=== PATIENT | male | born 1945 | race Caucasian/White ===

== ENCOUNTER 2019-08-19 23:47 | Observation (INO) ==
[2019-08-20] MEDS ORDERED: Isovue-370 500 ML BOTTLE IVP ONE (00:19)
[2019-08-20 00:37] LABS: Basophils % 0.7 %; Eosinophils # 0.1 K/mcL (0.0-0.6); Eosinophils % 1.7 %; Hematocrit 29.4 % (37.5-50.1); Hemoglobin 9.3 g/dL (12.9-16.9); Immature Granulocytes % 0.2 % (0-4); Lymphocytes # 2.5 K/mcL (0.6-4.6); Lymphocytes % 45.2 %; Mean Corpuscular HGB Conc 31.6 g/dL (31.6-35.5); Mean Corpuscular Hemoglobin 28.5 pg (28.0-33.3); Mean Corpuscular Volume 90.2 fL (83.0-100.0); Mean Platelet Volume 9.3 fL (9.4-12.4); Monocytes # 0.7 K/mcL (0.0-1.3); Monocytes % 13.2 %; Neutrophils # 2.1 K/mcL (1.6-8.9); Platelet Count 266 K/mcL (140-400); Red Blood Count 3.26 M/mcL (4.19-5.50); Red Cell Distribution Width 14.2 % (11.5-14.5); White Blood Count 5.4 K/mcL (4.3-11.1)
[2019-08-20 00:43] LABS: Bilirubin,Urine Negative (Negative); Blood,Urine Small (Negative); Clarity,Urine Clear (Clear); Color,Urine Yellow (Yellow); Glucose,Urine (UA) Normal (Normal); Ketones,Urine Negative (Negative); Leukocyte Esterase,Urine Negative (Negative); Nitrite,Urine Negative (Negative); Protein,Urine Negative (Neg-Trace); Specific Gravity,Urine 1.023 (1.010-1.025); Urobilinogen,Urine Normal (Normal)
[2019-08-20 00:44] LABS: Bacteria,Urine None Seen per hpf (None-Few); Hyaline Casts,Urine None Seen per lpf (None-Few); Squamous Epithelial Cell,Urine Moderate per lpf (None-Few); WBC,Urine 0-3 per hpf (0-3)
[2019-08-20 00:50] LABS: Amphetamine Screen,Urine Negative ng/mL (Cutoff=1000); Barbiturate Screen,Urine Negative ng/mL (Cutoff=200); Benzodiazepines Screen,Urine Negative ng/mL (Cutoff=200); Cannabinoid Screen,Urine Negative ng/mL (Cutoff = 50); Cocaine Screen,Urine Negative ng/mL (Cutoff= 300); Opiate Screen,Urine Negative ng/mL (Cutoff=300); Phencyclidine Screen,Urine Negative ng/mL (Cutoff=25)
[2019-08-20 00:54] LABS: Alanine Aminotransferase 20 Units/L (7-52); Albumin 4.1 g/dL (3.5-5.7); Albumin/Globulin Ratio 1.4 (1.1-2.2); Alkaline Phosphatase 48 Units/L (34-104); Aspartate Amino Transferase 27 Units/L (13-39); BUN/Creatinine Ratio 17 (6-26); Bilirubin,Total 0.3 mg/dL (0.3-1.0); Blood Urea Nitrogen 19 mg/dL (8-23); Calcium 9.3 mg/dL (8.6-10.3); Carbon Dioxide 23 mEq/L (23-29); Chloride 102 mEq/L (98-107); Glucose 134 mg/dL (70-105); Lipase 20 Units/L (11-82); Magnesium 1.9 mg/dL (1.6-2.6); Osmolality,Calculated 284 (280-300); Phosphorous 2.7 mg/dL (2.7-4.5); Sodium 135 mEq/L (136-145); Total Protein 7.1 g/dL (6.4-8.9); eGFR For African Americans > 60 (> 60); eGFR For Non-African Americans > 60 (> 60)
[2019-08-20 00:56] LABS: Troponin I < 0.03 ng/mL (< 0.04)
[2019-08-20] MEDS ORDERED: Potassium Chloride Elixir 20 MEQ/15 ML UDC PO ONE (01:01)
[2019-08-20] MEDS ORDERED: Naloxone 0.4 MG/ML INJ IVP PRN (08:01)
[2019-08-20] MEDS ORDERED: 0.9 % Sodium Chloride w KCl 20 MEQ/1,000 ML MLS IVC SCH (13:00)
[2019-08-20 13:42] LABS: Folate > 22.3 ng/mL (3.0-16.0); Vitamin B12 153 pg/mL (250-1100)
[2019-08-21 02:17] LABS: Basophils % 0.3 %; Eosinophils # 0.1 K/mcL (0.0-0.6); Eosinophils % 1.8 %; Hematocrit 27.3 % (37.5-50.1); Hemoglobin 8.6 g/dL (12.9-16.9); Immature Granulocytes % 0.3 % (0-4); Lymphocytes % 26.1 %; Mean Corpuscular HGB Conc 31.5 g/dL (31.6-35.5); Mean Corpuscular Hemoglobin 28.8 pg (28.0-33.3); Mean Corpuscular Volume 91.3 fL (83.0-100.0); Mean Platelet Volume 9.3 fL (9.4-12.4); Monocytes # 0.7 K/mcL (0.0-1.3); Monocytes % 16.6 %; Neutrophils # 2.2 K/mcL (1.6-8.9); Platelet Count 214 K/mcL (140-400); Red Blood Count 2.99 M/mcL (4.19-5.50); Red Cell Distribution Width 14.6 % (11.5-14.5); Segmented Neutrophils % 54.9 %; White Blood Count 3.9 K/mcL (4.3-11.1)
[2019-08-21 02:41] LABS: BUN/Creatinine Ratio 17 (6-26); Blood Urea Nitrogen 15 mg/dL (8-23); Calcium 8.3 mg/dL (8.6-10.3); Carbon Dioxide 21 mEq/L (23-29); Chloride 108 mEq/L (98-107); Glucose 90 mg/dL (70-105); Osmolality,Calculated 280 (280-300); Sodium 135 mEq/L (136-145); eGFR For African Americans > 60 (> 60); eGFR For Non-African Americans > 60 (> 60)
[2019-08-21] MEDS ORDERED: amLODIPine 5 MG TABLET PO SCH (09:00)
[2019-08-21] MEDS ORDERED: Dasatinib [Sprycel] 100 MG PO SCH (09:00)
[2019-08-21 11:53] VITALS: BP 148/77
[2019-08-21] MEDS ORDERED: Cyanocobalamin (B-12) 1,000 MCG/ML VIAL IM ONE (12:36)
[2019-08-21] MEDS ORDERED: levETIRAcetam 250 MG TABLET PO ONE (15:02)
== END 2019-08-21 16:08 | disposition home or self-care (01) ==
LOC: 2ANU 23:47 → EMEROOARM 23:47 → SUATTDRO 08-20 02:42 → 2ANU 08-20 03:01
PROVIDERS: ADMIT Internal Medicine; ATTEND Internal Medicine

== ENCOUNTER 2020-12-03 22:24 | Inpatient (IN) ==
[2020-12-04] MEDS ORDERED: Ringers Solution, Lactated 1,000 ML IVC ONE (00:06)
[2020-12-04 00:38] LABS: BUN/Creatinine Ratio 22 (6-26); Blood Urea Nitrogen 26 mg/dL (8-23); Calcium 8.9 mg/dL (8.6-10.3); Carbon Dioxide 23 mEq/L (23-29); Chloride 100 mEq/L (98-107); Glucose 113 mg/dL (70-105); Osmolality,Calculated 290 (280-300); Potassium 3.7 mEq/L (3.5-5.1); Sodium 137 mEq/L (136-145); eGFR For African Americans > 60 (> 60); eGFR For Non-African Americans 59 (> 60)
[2020-12-04 00:50] LABS: Troponin I 0.15 ng/mL (< 0.04)
[2020-12-04 00:52] LABS: INR 1.1; Prothrombin Time 12.6 Seconds (9.4-12.1)
[2020-12-04 00:55] LABS: Activated Partial Thrombo Time 31.7 Seconds (26.0-36.0)
[2020-12-04 01:00] LABS: Basophils % 0.5 %; Hematocrit 36.8 % (37.5-50.1); Hemoglobin 11.6 g/dL (12.9-16.9); Immature Granulocytes % 1.3 % (0-4); Lymphocytes # 0.4 K/mcL (0.6-4.6); Lymphocytes % 11.1 %; Mean Corpuscular HGB Conc 31.5 g/dL (31.6-35.5); Mean Corpuscular Volume 88.7 fL (83.0-100.0); Mean Platelet Volume 10.9 fL (9.4-12.4); Monocytes # 0.3 K/mcL (0.0-1.3); Monocytes % 6.6 %; Neutrophils # 3.1 K/mcL (1.6-8.9); Nucleated Red Blood Cells 0.5 /100 WBC (0); Platelet Count 197 K/mcL (140-400); Red Blood Count 4.15 M/mcL (4.19-5.50); Red Cell Distribution Width 15.5 % (11.5-14.5); Segmented Neutrophils % 80.5 %; White Blood Count 3.8 K/mcL (4.3-11.1)
[2020-12-04] MEDS ORDERED: Isovue-370 500 ML BOTTLE IVP ONE (01:23)
[2020-12-04] MEDS ORDERED: Aspirin 325 MG TABLET PO ONE (01:34)
[2020-12-04] MEDS ORDERED: Naloxone 0.4 MG/ML INJ IVP PRN (03:23)
[2020-12-04] MEDS: *HR* Enoxaparin 60 MG/0.6 ML SYRINGE SQ SCH ×2 (05:12→17:01)
[2020-12-04 05:22] LABS: Alanine Aminotransferase 15 Units/L (7-52); Albumin 3.5 g/dL (3.5-5.7); Albumin/Globulin Ratio 0.9 (1.1-2.2); Alkaline Phosphatase 32 Units/L (34-104); Aspartate Amino Transferase 47 Units/L (13-39); BUN/Creatinine Ratio 22 (6-26); Bilirubin,Total 0.5 mg/dL (0.3-1.0); Blood Urea Nitrogen 23 mg/dL (8-23); Calcium 8.7 mg/dL (8.6-10.3); Carbon Dioxide 23 mEq/L (23-29); Chloride 101 mEq/L (98-107); Globulin 4.1 g/dL (2.4-3.5); Glucose 118 mg/dL (70-105); Osmolality,Calculated 287 (280-300); Potassium 3.7 mEq/L (3.5-5.1); Sodium 136 mEq/L (136-145); Total Protein 7.6 g/dL (6.4-8.9); eGFR For African Americans > 60 (> 60); eGFR For Non-African Americans > 60 (> 60)
[2020-12-04 05:23] LABS: Albumin 3.6 g/dL (3.5-5.7); Albumin/Globulin Ratio 0.9 (1.1-2.2); Bilirubin,Direct 0.2 mg/dL (0.0-0.2); Bilirubin,Indirect 0.3 mg/dL (0.0-1.0); Bilirubin,Total 0.5 mg/dL (0.3-1.0); Globulin 3.9 g/dL (2.4-3.5); Total Protein 7.5 g/dL (6.4-8.9)
[2020-12-04 05:26] LABS: C-Reactive Protein 119 mg/L (Less than 10)
[2020-12-04 05:41] LABS: Ferritin 419 ng/mL (20-250)
[2020-12-04 06:04] LABS: Basophils % 0.5 %; Hematocrit 36.8 % (37.5-50.1); Hemoglobin 11.6 g/dL (12.9-16.9); Immature Granulocytes % 0.5 % (0-4); Lymphocytes # 0.5 K/mcL (0.6-4.6); Lymphocytes % 12.3 %; Mean Corpuscular HGB Conc 31.5 g/dL (31.6-35.5); Mean Corpuscular Volume 88.7 fL (83.0-100.0); Mean Platelet Volume 10.7 fL (9.4-12.4); Monocytes # 0.2 K/mcL (0.0-1.3); Monocytes % 4.2 %; Neutrophils # 3.1 K/mcL (1.6-8.9); Platelet Count 195 K/mcL (140-400); Red Blood Count 4.15 M/mcL (4.19-5.50); Red Cell Distribution Width 15.5 % (11.5-14.5); Segmented Neutrophils % 82.5 %; White Blood Count 3.8 K/mcL (4.3-11.1)
[2020-12-04] MEDS ORDERED: Perflutren Lipid Microsphere 1.3 ML in 0.9 % Sodium Chloride 8.7 ML IVP PRN (12:11)
[2020-12-05 02:42] LABS: Basophils % 0.5 %; Hematocrit 39.2 % (37.5-50.1); Hemoglobin 12.6 g/dL (12.9-16.9); Immature Granulocytes % 1.8 % (0-4); Lymphocytes # 0.5 K/mcL (0.6-4.6); Lymphocytes % 8.3 %; Mean Corpuscular HGB Conc 32.1 g/dL (31.6-35.5); Mean Corpuscular Hemoglobin 28.4 pg (28.0-33.3); Mean Corpuscular Volume 88.5 fL (83.0-100.0); Mean Platelet Volume 10.6 fL (9.4-12.4); Monocytes # 0.3 K/mcL (0.0-1.3); Monocytes % 4.9 %; Neutrophils # 5.2 K/mcL (1.6-8.9); Platelet Count 244 K/mcL (140-400); Red Blood Count 4.43 M/mcL (4.19-5.50); Red Cell Distribution Width 15.6 % (11.5-14.5); Segmented Neutrophils % 84.5 %
[2020-12-05 02:43] LABS: White Blood Count 6.1 K/mcL (4.3-11.1)
[2020-12-05 03:05] LABS: Alanine Aminotransferase 12 Units/L (7-52); Albumin 3.2 g/dL (3.5-5.7); Albumin/Globulin Ratio 0.8 (1.1-2.2); Alkaline Phosphatase 29 Units/L (34-104); Aspartate Amino Transferase 37 Units/L (13-39); BUN/Creatinine Ratio 25 (6-26); Bilirubin,Total 0.4 mg/dL (0.3-1.0); Blood Urea Nitrogen 30 mg/dL (8-23); Calcium 8.5 mg/dL (8.6-10.3); Carbon Dioxide 25 mEq/L (23-29); Chloride 103 mEq/L (98-107); Glucose 106 mg/dL (70-105); Osmolality,Calculated 295 (280-300); Potassium 4.7 mEq/L (3.5-5.1); Sodium 139 mEq/L (136-145); Total Protein 7.2 g/dL (6.4-8.9); eGFR For African Americans > 60 (> 60); eGFR For Non-African Americans 59 (> 60)
[2020-12-05] MEDS: *HR* Enoxaparin 60 MG/0.6 ML SYRINGE SQ SCH ×2 (06:04→17:30)
[2020-12-05] MEDS: Lactobacillus 1 EACH CAP.SPRINK PO SCH ×2 (08:14→20:03)
[2020-12-05] MEDS: amLODIPine 5 MG TABLET PO SCH (08:14)
[2020-12-05] MEDS: dexAMETHasone 4 MG TABLET PO SCH (08:15)
[2020-12-05] MEDS: DASATINIB 100 MG PO SCH (08:16)
[2020-12-05] MEDS ORDERED: Remdesivir 200 MG in 0.9 % Sodium Chloride 100 ML IVPB ONE (16:00)
[2020-12-05] MEDS: Ipratropium 1 PUFF INHALER IH SCH ×2 (20:44→20:48)
[2020-12-06] MEDS: Ipratropium 1 PUFF INHALER IH SCH ×6 (00:35→19:59)
[2020-12-06 01:49] LABS: Basophils % 0.5 %; Hematocrit 37.2 % (37.5-50.1); Hemoglobin 12.1 g/dL (12.9-16.9); Immature Granulocytes % 0.9 % (0-4); Lymphocytes # 0.4 K/mcL (0.6-4.6); Lymphocytes % 7.3 %; Mean Corpuscular HGB Conc 32.5 g/dL (31.6-35.5); Mean Corpuscular Hemoglobin 28.6 pg (28.0-33.3); Mean Corpuscular Volume 87.9 fL (83.0-100.0); Mean Platelet Volume 10.3 fL (9.4-12.4); Monocytes # 0.3 K/mcL (0.0-1.3); Monocytes % 5.3 %; Neutrophils # 5.1 K/mcL (1.6-8.9); Platelet Count 280 K/mcL (140-400); Red Blood Count 4.23 M/mcL (4.19-5.50); Red Cell Distribution Width 15.4 % (11.5-14.5); White Blood Count 5.9 K/mcL (4.3-11.1)
[2020-12-06 01:55] LABS: VBG HCO3 24 mEq/L (21-27); VBG PCO2 34 mmHg (41-51); VBG PH 7.46 pH Units (7.32-7.42); VBG PO2 51 mmHg (25-50)
[2020-12-06 02:08] LABS: Albumin 3.3 g/dL (3.5-5.7); Albumin/Globulin Ratio 0.8 (1.1-2.2); Bilirubin,Direct 0.1 mg/dL (0.0-0.2); Bilirubin,Indirect 0.3 mg/dL (0.0-1.0); Bilirubin,Total 0.4 mg/dL (0.3-1.0); Globulin 3.9 g/dL (2.4-3.5); Total Protein 7.2 g/dL (6.4-8.9)
[2020-12-06 02:09] LABS: BUN/Creatinine Ratio 32 (6-26); Blood Urea Nitrogen 35 mg/dL (8-23); C-Reactive Protein 98 mg/L (Less than 10); Calcium 8.3 mg/dL (8.6-10.3); Carbon Dioxide 23 mEq/L (23-29); Chloride 103 mEq/L (98-107); Glucose 127 mg/dL (70-105); Osmolality,Calculated 294 (280-300); Potassium 3.9 mEq/L (3.5-5.1); Sodium 137 mEq/L (136-145); eGFR For African Americans > 60 (> 60); eGFR For Non-African Americans > 60 (> 60)
[2020-12-06] MEDS: *HR* Enoxaparin 60 MG/0.6 ML SYRINGE SQ SCH ×2 (04:46→17:02)
[2020-12-06] MEDS: DASATINIB 100 MG PO SCH (08:42)
[2020-12-06] MEDS: Lactobacillus 1 EACH CAP.SPRINK PO SCH ×2 (08:44→20:36)
[2020-12-06] MEDS: dexAMETHasone 4 MG TABLET PO SCH (08:44)
[2020-12-06] MEDS: amLODIPine 5 MG TABLET PO SCH (08:44)
[2020-12-06] MEDS: Remdesivir 100 MG in 0.9 % Sodium Chloride 100 ML IVPB SCH (15:59)
[2020-12-06] MEDS: Dexmedetomidine HCl 400 MCG/100 ML MLS IVC SCH (19:04)
[2020-12-06 22:31] LABS: VBG Ionized Calcium 1.07 mmol/L (1.15-1.35)
[2020-12-06 22:50] LABS: Magnesium 2.6 mg/dL (1.6-2.6)
[2020-12-06 23:04] LABS: Troponin I 0.06 ng/mL (< 0.04)
[2020-12-07 02:30] LABS: Basophils % 0.4 %; Hematocrit 35.7 % (37.5-50.1); Hemoglobin 11.1 g/dL (12.9-16.9); Lymphocytes # 0.3 K/mcL (0.6-4.6); Lymphocytes % 5.3 %; Mean Corpuscular HGB Conc 31.1 g/dL (31.6-35.5); Mean Corpuscular Volume 90.2 fL (83.0-100.0); Mean Platelet Volume 10.5 fL (9.4-12.4); Monocytes # 0.2 K/mcL (0.0-1.3); Monocytes % 4.1 %; Neutrophils # 4.6 K/mcL (1.6-8.9); Platelet Count 253 K/mcL (140-400); Red Blood Count 3.96 M/mcL (4.19-5.50); Red Cell Distribution Width 15.6 % (11.5-14.5); Segmented Neutrophils % 89.2 %; White Blood Count 5.1 K/mcL (4.3-11.1)
[2020-12-07 02:47] LABS: Heparin anti-factor XA UFH 0.12 IU/mL (0.30-0.70); INR 1.1; Prothrombin Time 12.3 Seconds (9.4-12.1)
[2020-12-07 02:54] LABS: Alanine Aminotransferase 12 Units/L (7-52); Albumin/Globulin Ratio 0.9 (1.1-2.2); Alkaline Phosphatase 28 Units/L (34-104); Aspartate Amino Transferase 37 Units/L (13-39); BUN/Creatinine Ratio 42 (6-26); Bilirubin,Indirect 0.4 mg/dL (0.0-1.0); Bilirubin,Total 0.4 mg/dL (0.3-1.0); Blood Urea Nitrogen 36 mg/dL (8-23); C-Reactive Protein 73 mg/L (Less than 10); Calcium 7.8 mg/dL (8.6-10.3); Carbon Dioxide 23 mEq/L (23-29); Chloride 104 mEq/L (98-107); Globulin 3.5 g/dL (2.4-3.5); Glucose 129 mg/dL (70-105); Osmolality,Calculated 300 (280-300); Sodium 140 mEq/L (136-145); Total Protein 6.5 g/dL (6.4-8.9); eGFR For African Americans > 60 (> 60); eGFR For Non-African Americans > 60 (> 60)
[2020-12-07] MEDS: Calcium Gluconate 1gm/50mL 1 GM/50 ML BAG IVPB SCH ×2 (03:22→04:08)
[2020-12-07] MEDS: Heparin 25,000UNIT/250ML 1/2NS 25,000 UNIT/250 ML IV.SOLN IVC SCH (03:27)
[2020-12-07] MEDS: Ipratropium 1 PUFF INHALER IH SCH ×7 (04:36→23:11)
[2020-12-07] MEDS ORDERED: *HR* Heparin 5,000 UNIT/ML VIAL IVP PRN ×2 (05:00)
[2020-12-07] MEDS: Lactobacillus 1 EACH CAP.SPRINK PO SCH ×2 (08:20→20:28)
[2020-12-07] MEDS: DASATINIB 100 MG PO SCH (08:20)
[2020-12-07] MEDS: amLODIPine 5 MG TABLET PO SCH (08:20)
[2020-12-07] MEDS: Dexamethasone Sodium Phos/PF 10 MG/ML VIAL IVP SCH (14:54)
[2020-12-07] MEDS: Remdesivir 100 MG in 0.9 % Sodium Chloride 100 ML IVPB SCH (18:23)
[2020-12-08] MEDS: Ipratropium 1 PUFF INHALER IH SCH ×6 (04:19→23:49)
[2020-12-08 07:04] LABS: Basophils % 0.3 %; Hematocrit 37.3 % (37.5-50.1); Immature Granulocytes % 1.4 % (0-4); Lymphocytes # 0.3 K/mcL (0.6-4.6); Lymphocytes % 4.5 %; Mean Corpuscular HGB Conc 32.2 g/dL (31.6-35.5); Mean Corpuscular Volume 87.1 fL (83.0-100.0); Mean Platelet Volume 10.5 fL (9.4-12.4); Monocytes # 0.2 K/mcL (0.0-1.3); Monocytes % 3.3 %; Neutrophils # 6.6 K/mcL (1.6-8.9); Platelet Count 353 K/mcL (140-400); Red Blood Count 4.28 M/mcL (4.19-5.50); Red Cell Distribution Width 15.3 % (11.5-14.5); Segmented Neutrophils % 90.5 %; White Blood Count 7.3 K/mcL (4.3-11.1)
[2020-12-08 07:19] LABS: BUN/Creatinine Ratio 42 (6-26); Blood Urea Nitrogen 37 mg/dL (8-23); Calcium 8.6 mg/dL (8.6-10.3); Carbon Dioxide 23 mEq/L (23-29); Chloride 107 mEq/L (98-107); Glucose 117 mg/dL (70-105); Osmolality,Calculated 300 (280-300); Potassium 3.8 mEq/L (3.5-5.1); Sodium 140 mEq/L (136-145); eGFR For African Americans > 60 (> 60); eGFR For Non-African Americans > 60 (> 60)
[2020-12-08 07:20] LABS: Albumin 3.1 g/dL (3.5-5.7); Albumin/Globulin Ratio 0.9 (1.1-2.2); Bilirubin,Direct 0.2 mg/dL (0.0-0.2); Bilirubin,Indirect 0.2 mg/dL (0.0-1.0); Bilirubin,Total 0.4 mg/dL (0.3-1.0); Globulin 3.6 g/dL (2.4-3.5); Total Protein 6.7 g/dL (6.4-8.9)
[2020-12-08] MEDS: amLODIPine 5 MG TABLET PO SCH (08:17)
[2020-12-08] MEDS: Dexamethasone Sodium Phos/PF 10 MG/ML VIAL IVP SCH (08:17)
[2020-12-08] MEDS: Lactobacillus 1 EACH CAP.SPRINK PO SCH ×2 (08:17→20:26)
[2020-12-08] MEDS: Remdesivir 100 MG in 0.9 % Sodium Chloride 100 ML IVPB SCH (16:37)
[2020-12-08] MEDS: Aspirin Enteric Coated 325 MG Tablet PO SCH (17:53)
[2020-12-08] MEDS: Heparin 25,000UNIT/250ML 1/2NS 25,000 UNIT/250 ML IV.SOLN IVC SCH (18:41)
[2020-12-09 01:18] LABS: Basophils % 0.5 %; Hematocrit 35.2 % (37.5-50.1); Hemoglobin 11.6 g/dL (12.9-16.9); Immature Granulocytes % 2.6 % (0-4); Lymphocytes # 0.4 K/mcL (0.6-4.6); Lymphocytes % 6.8 %; Mean Corpuscular Hemoglobin 29.3 pg (28.0-33.3); Mean Corpuscular Volume 88.9 fL (83.0-100.0); Mean Platelet Volume 10.2 fL (9.4-12.4); Monocytes # 0.2 K/mcL (0.0-1.3); Neutrophils # 5.2 K/mcL (1.6-8.9); Platelet Count 368 K/mcL (140-400); Red Blood Count 3.96 M/mcL (4.19-5.50); Red Cell Distribution Width 15.3 % (11.5-14.5); Segmented Neutrophils % 86.1 %; White Blood Count 6.1 K/mcL (4.3-11.1)
[2020-12-09 01:28] LABS: Heparin anti-factor XA UFH 0.47 IU/mL (0.30-0.70)
[2020-12-09 01:38] LABS: Albumin 2.9 g/dL (3.5-5.7); Albumin/Globulin Ratio 0.9 (1.1-2.2); Bilirubin,Direct 0.1 mg/dL (0.0-0.2); Bilirubin,Indirect 0.3 mg/dL (0.0-1.0); Bilirubin,Total 0.4 mg/dL (0.3-1.0); Globulin 3.4 g/dL (2.4-3.5); Total Protein 6.3 g/dL (6.4-8.9)
[2020-12-09 01:39] LABS: BUN/Creatinine Ratio 46 (6-26); Blood Urea Nitrogen 37 mg/dL (8-23); Calcium 8.4 mg/dL (8.6-10.3); Carbon Dioxide 21 mEq/L (23-29); Chloride 109 mEq/L (98-107); Glucose 175 mg/dL (70-105); Osmolality,Calculated 297 (280-300); Potassium 3.8 mEq/L (3.5-5.1); Sodium 137 mEq/L (136-145); eGFR For African Americans > 60 (> 60); eGFR For Non-African Americans > 60 (> 60)
[2020-12-09] MEDS: Ipratropium 1 PUFF INHALER IH SCH ×6 (03:31→23:39)
[2020-12-09] MEDS ORDERED: *HR* Enoxaparin 40 MG/0.4 ML SYRINGE SQ SCH (06:00)
[2020-12-09] MEDS ORDERED: cefTRIAXone 2,000 MG in Water for inj. (sterile) 20 ML IVP ONE (08:56)
[2020-12-09] MEDS: Aspirin Enteric Coated 325 MG Tablet PO SCH (09:52)
[2020-12-09] MEDS: Lactobacillus 1 EACH CAP.SPRINK PO SCH ×2 (09:52→21:15)
[2020-12-09] MEDS: Apixaban 5 MG TABLET PO SCH ×2 (09:53→21:15)
[2020-12-09] MEDS: amLODIPine 5 MG TABLET PO SCH (09:53)
[2020-12-09] MEDS: Dexamethasone Sodium Phos/PF 10 MG/ML VIAL IVP SCH (10:00)
[2020-12-09] MEDS: Furosemide 20 MG/2 ML VIAL IVP SCH ×2 (10:01→21:15)
[2020-12-09] MEDS: DASATINIB 100 MG PO SCH (10:13)
[2020-12-10] MEDS: Dexmedetomidine HCl 400 MCG/100 ML MLS IVC SCH ×2 (01:15→01:17)
[2020-12-10] MEDS: DASATINIB 100 MG PO SCH ×2 (01:16→07:59)
[2020-12-10 02:43] LABS: BUN/Creatinine Ratio 44 (6-26); Blood Urea Nitrogen 37 mg/dL (8-23); Calcium 8.2 mg/dL (8.6-10.3); Carbon Dioxide 23 mEq/L (23-29); Chloride 108 mEq/L (98-107); Glucose 127 mg/dL (70-105); Osmolality,Calculated 300 (280-300); Potassium 3.7 mEq/L (3.5-5.1); Sodium 140 mEq/L (136-145); eGFR For African Americans > 60 (> 60); eGFR For Non-African Americans > 60 (> 60)
[2020-12-10 02:44] LABS: Albumin/Globulin Ratio 0.8 (1.1-2.2); Bilirubin,Direct 0.1 mg/dL (0.0-0.2); Bilirubin,Indirect 0.2 mg/dL (0.0-1.0); Bilirubin,Total 0.3 mg/dL (0.3-1.0); Globulin 3.6 g/dL (2.4-3.5); Total Protein 6.6 g/dL (6.4-8.9)
[2020-12-10] MEDS: Ipratropium 1 PUFF INHALER IH SCH ×5 (03:56→20:12)
[2020-12-10] MEDS: Aspirin Enteric Coated 325 MG Tablet PO SCH (07:55)
[2020-12-10] MEDS: amLODIPine 5 MG TABLET PO SCH (07:56)
[2020-12-10] MEDS: Apixaban 5 MG TABLET PO SCH ×2 (07:57→20:43)
[2020-12-10] MEDS: Dexamethasone Sodium Phos/PF 10 MG/ML VIAL IVP SCH (07:58)
[2020-12-10] MEDS: Lactobacillus 1 EACH CAP.SPRINK PO SCH (07:58)
[2020-12-10] MEDS: Furosemide 20 MG/2 ML VIAL IVP SCH ×2 (07:59→20:46)
[2020-12-10] MEDS: Doxycycline 100 MG CAPSULE PO SCH (15:44)
[2020-12-11] MEDS: Doxycycline 100 MG CAPSULE PO SCH ×2 (00:07→09:17)
[2020-12-11] MEDS: Lactobacillus 1 EACH CAP.SPRINK PO SCH ×3 (00:07→20:35)
[2020-12-11] MEDS: Ipratropium 1 PUFF INHALER IH SCH ×6 (00:10→20:24)
[2020-12-11] MEDS: Dexmedetomidine HCl 400 MCG/100 ML MLS IVC SCH ×2 (05:23→16:32)
[2020-12-11 08:31] LABS: BUN/Creatinine Ratio 49 (6-26); Blood Urea Nitrogen 42 mg/dL (8-23); Calcium 8.5 mg/dL (8.6-10.3); Carbon Dioxide 24 mEq/L (23-29); Chloride 107 mEq/L (98-107); Glucose 107 mg/dL (70-105); Osmolality,Calculated 303 (280-300); Potassium 3.6 mEq/L (3.5-5.1); Sodium 141 mEq/L (136-145); eGFR For African Americans > 60 (> 60); eGFR For Non-African Americans > 60 (> 60)
[2020-12-11] MEDS: Aspirin Enteric Coated 325 MG Tablet PO SCH (09:17)
[2020-12-11] MEDS: Apixaban 5 MG TABLET PO SCH ×2 (09:17→20:35)
[2020-12-11] MEDS: amLODIPine 5 MG TABLET PO SCH (09:17)
[2020-12-11] MEDS: Furosemide 20 MG/2 ML VIAL IVP SCH (09:18)
[2020-12-11] MEDS: Dexamethasone Sodium Phos/PF 10 MG/ML VIAL IVP SCH (09:18)
[2020-12-11] MEDS: DASATINIB 100 MG PO SCH (09:28)
[2020-12-11 12:01] LABS: VBG HCO3 26 mEq/L (21-27); VBG PCO2 38 mmHg (41-51); VBG PH 7.45 pH Units (7.32-7.42); VBG PO2 102 mmHg (25-50)
[2020-12-12] MEDS: Ipratropium 1 PUFF INHALER IH SCH ×6 (00:02→20:05)
[2020-12-12] MEDS: Lactobacillus 1 EACH CAP.SPRINK PO SCH ×2 (09:52→22:41)
[2020-12-12] MEDS: amLODIPine 5 MG TABLET PO SCH (09:52)
[2020-12-12] MEDS: dexAMETHasone 4 MG TABLET PO SCH (09:53)
[2020-12-12] MEDS: Apixaban 5 MG TABLET PO SCH ×2 (09:53→22:40)
[2020-12-12] MEDS: Aspirin Enteric Coated 325 MG Tablet PO SCH (09:53)
[2020-12-12] MEDS: DASATINIB 100 MG PO SCH (09:54)
[2020-12-12] MEDS: Dexmedetomidine HCl 400 MCG/100 ML MLS IVC SCH (17:56)
[2020-12-13] MEDS: Ipratropium 1 PUFF INHALER IH SCH ×6 (00:36→20:41)
[2020-12-13] MEDS: dexAMETHasone 4 MG TABLET PO SCH (08:50)
[2020-12-13] MEDS: Lactobacillus 1 EACH CAP.SPRINK PO SCH ×2 (08:50→20:31)
[2020-12-13] MEDS: Aspirin Enteric Coated 325 MG Tablet PO SCH (08:50)
[2020-12-13] MEDS: amLODIPine 5 MG TABLET PO SCH (08:51)
[2020-12-13] MEDS: DASATINIB 100 MG PO SCH (09:00)
[2020-12-13] MEDS: Apixaban 5 MG TABLET PO SCH ×2 (09:00→20:31)
[2020-12-13] MEDS: Dexmedetomidine HCl 400 MCG/100 ML MLS IVC SCH (16:23)
[2020-12-14] MEDS: Ipratropium 1 PUFF INHALER IH SCH ×7 (00:19→23:00)
[2020-12-14] MEDS: amLODIPine 5 MG TABLET PO SCH (09:52)
[2020-12-14] MEDS: dexAMETHasone 4 MG TABLET PO SCH (09:52)
[2020-12-14] MEDS: Apixaban 5 MG TABLET PO SCH ×2 (09:52→19:55)
[2020-12-14] MEDS: Lactobacillus 1 EACH CAP.SPRINK PO SCH ×2 (09:52→19:55)
[2020-12-14] MEDS: Aspirin Enteric Coated 325 MG Tablet PO SCH (09:52)
[2020-12-14] MEDS: DASATINIB 100 MG PO SCH (09:53)
[2020-12-14] MEDS ORDERED: polyethylene glycoL 3350 17 GM POWD.PACK PO PRN (10:46)
[2020-12-14] MEDS: Sennosides/Docusate Sodium TABLET PO SCH ×2 (12:19→19:55)
[2020-12-14 13:29] LABS: Hematocrit 40.7 % (37.5-50.1); Hemoglobin 12.8 g/dL (12.9-16.9); Mean Corpuscular HGB Conc 31.4 g/dL (31.6-35.5); Mean Corpuscular Hemoglobin 28.3 pg (28.0-33.3); Mean Corpuscular Volume 89.8 fL (83.0-100.0); Mean Platelet Volume 10.2 fL (9.4-12.4); Platelet Count 413 K/mcL (140-400); Red Blood Count 4.53 M/mcL (4.19-5.50); Red Cell Distribution Width 15.6 % (11.5-14.5)
[2020-12-14 13:32] LABS: White Blood Count 10.6 K/mcL (4.3-11.1)
[2020-12-14 14:25] LABS: BUN/Creatinine Ratio 49 (6-26); Blood Urea Nitrogen 35 mg/dL (8-23); Calcium 8.6 mg/dL (8.6-10.3); Carbon Dioxide 23 mEq/L (23-29); Chloride 104 mEq/L (98-107); Glucose 100 mg/dL (70-105); Osmolality,Calculated 292 (280-300); Potassium 3.9 mEq/L (3.5-5.1); Sodium 137 mEq/L (136-145); eGFR For African Americans > 60 (> 60); eGFR For Non-African Americans > 60 (> 60)
[2020-12-14] MEDS: Dexmedetomidine HCl 400 MCG/100 ML MLS IVC SCH (23:50)
[2020-12-15] MEDS: Ipratropium 1 PUFF INHALER IH SCH ×5 (03:38→20:30)
[2020-12-15] MEDS: DASATINIB 100 MG PO SCH (10:59)
[2020-12-15] MEDS: Sennosides/Docusate Sodium TABLET PO SCH ×2 (10:59→19:49)
[2020-12-15] MEDS: amLODIPine 5 MG TABLET PO SCH (10:59)
[2020-12-15] MEDS: Lactobacillus 1 EACH CAP.SPRINK PO SCH ×2 (10:59→19:48)
[2020-12-15] MEDS: Aspirin Enteric Coated 325 MG Tablet PO SCH (10:59)
[2020-12-15] MEDS: Apixaban 5 MG TABLET PO SCH ×2 (11:00→19:48)
[2020-12-15] MEDS: dexAMETHasone 4 MG TABLET PO SCH (11:00)
[2020-12-15] MEDS: Dexmedetomidine HCl 400 MCG/100 ML MLS IVC SCH (19:20)
[2020-12-16] MEDS: Ipratropium 1 PUFF INHALER IH SCH ×7 (00:22→23:19)
[2020-12-16] MEDS: Sennosides/Docusate Sodium TABLET PO SCH ×2 (08:46→19:27)
[2020-12-16] MEDS: Aspirin Enteric Coated 325 MG Tablet PO SCH (08:46)
[2020-12-16] MEDS: dexAMETHasone 4 MG TABLET PO SCH (08:46)
[2020-12-16] MEDS: amLODIPine 5 MG TABLET PO SCH (08:46)
[2020-12-16] MEDS: DASATINIB 100 MG PO SCH (08:47)
[2020-12-16] MEDS: Lactobacillus 1 EACH CAP.SPRINK PO SCH ×2 (08:47→19:27)
[2020-12-16] MEDS: Apixaban 5 MG TABLET PO SCH ×2 (08:47→19:26)
[2020-12-17] MEDS: Ipratropium 1 PUFF INHALER IH SCH ×6 (03:54→23:11)
[2020-12-17] MEDS: dexAMETHasone 4 MG TABLET PO SCH (08:29)
[2020-12-17] MEDS: Lactobacillus 1 EACH CAP.SPRINK PO SCH ×2 (08:29→20:10)
[2020-12-17] MEDS: Sennosides/Docusate Sodium TABLET PO SCH ×2 (08:30→20:11)
[2020-12-17] MEDS: Apixaban 5 MG TABLET PO SCH ×2 (08:30→20:11)
[2020-12-17] MEDS: Aspirin Enteric Coated 81 MG Tablet PO SCH (08:30)
[2020-12-17] MEDS: amLODIPine 5 MG TABLET PO SCH (08:30)
[2020-12-17] MEDS: DASATINIB 100 MG PO SCH (08:31)
[2020-12-17 19:19] LABS: Influenza A PCR Negative (Negative); Influenza B PCR Negative (Negative); Resp. Syncytial Virus PCR Negative (Negative)
[2020-12-17 20:55] LABS: SARS-CoV-2 by PCR (In House) Positive (Negative)
[2020-12-18 02:48] LABS: Hematocrit 36.2 % (37.5-50.1); Hemoglobin 11.3 g/dL (12.9-16.9); Mean Corpuscular HGB Conc 31.2 g/dL (31.6-35.5); Mean Corpuscular Hemoglobin 27.9 pg (28.0-33.3); Mean Corpuscular Volume 89.4 fL (83.0-100.0); Mean Platelet Volume 10.8 fL (9.4-12.4); Platelet Count 329 K/mcL (140-400); Red Blood Count 4.05 M/mcL (4.19-5.50); Red Cell Distribution Width 15.7 % (11.5-14.5); White Blood Count 10.2 K/mcL (4.3-11.1)
[2020-12-18 03:05] LABS: BUN/Creatinine Ratio 49 (6-26); Blood Urea Nitrogen 33 mg/dL (8-23); Calcium 8.8 mg/dL (8.6-10.3); Carbon Dioxide 24 mEq/L (23-29); Chloride 102 mEq/L (98-107); Glucose 114 mg/dL (70-105); Osmolality,Calculated 284 (280-300); Potassium 5.1 mEq/L (3.5-5.1); Sodium 133 mEq/L (136-145); eGFR For African Americans > 60 (> 60); eGFR For Non-African Americans > 60 (> 60)
[2020-12-18] MEDS: Ipratropium 1 PUFF INHALER IH SCH ×5 (03:53→19:44)
[2020-12-18] MEDS: Sennosides/Docusate Sodium TABLET PO SCH ×2 (08:41→20:56)
[2020-12-18] MEDS: amLODIPine 5 MG TABLET PO SCH (08:42)
[2020-12-18] MEDS: Lactobacillus 1 EACH CAP.SPRINK PO SCH ×2 (08:42→20:56)
[2020-12-18] MEDS: Apixaban 5 MG TABLET PO SCH ×2 (08:42→20:56)
[2020-12-18] MEDS: Aspirin Enteric Coated 81 MG Tablet PO SCH (08:42)
[2020-12-18] MEDS: DASATINIB 100 MG PO SCH (11:18)
[2020-12-19] MEDS: Ipratropium 1 PUFF INHALER IH SCH ×7 (00:46→23:33)
[2020-12-19] MEDS: amLODIPine 5 MG TABLET PO SCH (09:45)
[2020-12-19] MEDS: Lactobacillus 1 EACH CAP.SPRINK PO SCH ×2 (09:45→22:24)
[2020-12-19] MEDS: Sennosides/Docusate Sodium TABLET PO SCH ×2 (09:45→22:24)
[2020-12-19] MEDS: Apixaban 5 MG TABLET PO SCH ×2 (09:46→22:23)
[2020-12-19] MEDS: Aspirin Enteric Coated 81 MG Tablet PO SCH (09:46)
[2020-12-20] MEDS: Ipratropium 1 PUFF INHALER IH SCH ×4 (03:18→16:28)
[2020-12-20] MEDS: DASATINIB 100 MG PO SCH ×2 (07:17→08:52)
[2020-12-20] MEDS: amLODIPine 5 MG TABLET PO SCH (08:51)
[2020-12-20] MEDS: Lactobacillus 1 EACH CAP.SPRINK PO SCH (08:51)
[2020-12-20] MEDS: Sennosides/Docusate Sodium TABLET PO SCH (08:52)
[2020-12-20] MEDS: Aspirin Enteric Coated 81 MG Tablet PO SCH (08:52)
[2020-12-20] MEDS: Apixaban 5 MG TABLET PO SCH (08:52)
[2020-12-20 16:11] VITALS: BP 130/81; PULSE 73; TEMP 97.8
[2020-12-20 16:33] VITALS: O2SAT 96
== END 2020-12-20 18:15 | DRG 871 ==
LOC: 3BNU 22:24 → EMEROOARM 22:24 → SUATTDRO 12-04 03:23 → 3BNU 12-04 03:40 → 3NENU 12-06 10:08
PROVIDERS: ADMIT Internal Medicine; ATTEND Internal Medicine

== ENCOUNTER 2021-02-24 16:51 | Inpatient (IN) ==
[2021-02-24 17:54] LABS: Basophils % 0.2 %
[2021-02-24 17:56] LABS: Eosinophils % 0.1 %; Hematocrit 16.5 % (37.5-50.1); Immature Granulocytes % 0.7 % (0-4); Mean Corpuscular HGB Conc 26.7 g/dL (31.6-35.5); Mean Corpuscular Hemoglobin 21.2 pg (28.0-33.3); Mean Corpuscular Volume 79.3 fL (83.0-100.0); Mean Platelet Volume 9.1 fL (9.4-12.4); Monocytes # 0.9 K/mcL (0.0-1.3); Monocytes % 7.1 %; Nucleated Red Blood Cells 5.2 /100 WBC (0); Platelet Count 518 K/mcL (140-400); Red Blood Count 2.08 M/mcL (4.19-5.50); Segmented Neutrophils % 83.9 %; White Blood Count 12.2 K/mcL (4.3-11.1)
[2021-02-24 18:02] LABS: INR 1.1; Prothrombin Time 12.3 Seconds (9.4-12.1)
[2021-02-24 18:04] LABS: Activated Partial Thrombo Time 24.3 Seconds (26.0-36.0)
[2021-02-24 18:07] LABS: Alanine Aminotransferase 17 Units/L (7-52); Albumin 2.8 g/dL (3.5-5.7); Albumin/Globulin Ratio 0.8 (1.1-2.2); Alkaline Phosphatase 102 Units/L (34-104); Aspartate Amino Transferase 40 Units/L (13-39); BUN/Creatinine Ratio 25 (6-26); Bilirubin,Total 0.3 mg/dL (0.3-1.0); Blood Urea Nitrogen 32 mg/dL (8-23); Calcium 9.5 mg/dL (8.6-10.3); Carbon Dioxide 22 mEq/L (23-29); Chloride 101 mEq/L (98-107); Globulin 3.3 g/dL (2.4-3.5); Glucose 134 mg/dL (70-105); Magnesium 2.3 mg/dL (1.6-2.6); Osmolality,Calculated 285 (280-300); Potassium 4.6 mEq/L (3.5-5.1); Sodium 133 mEq/L (136-145); Total Protein 6.1 g/dL (6.4-8.9); eGFR For African Americans > 60 (> 60); eGFR For Non-African Americans 55 (> 60)
[2021-02-24 18:10] LABS: Hemoglobin 4.4 g/dL (12.9-16.9); Neutrophils # 10.2 K/mcL (1.6-8.9)
[2021-02-24 18:17] LABS: Anisocytosis 2+ (Not Present); Hypochromasia Present (Not Present)
[2021-02-24 18:20] LABS: Troponin I 0.37 ng/mL (< 0.04)
[2021-02-24 18:29] LABS: Thyroid Stimulating Hormone 5.025 mcIU/mL (0.340-5.600)
[2021-02-24 18:46] LABS: Bilirubin,Urine Negative (Negative); Blood,Urine Negative (Negative); Clarity,Urine Clear (Clear); Color,Urine Light-Yellow (Yellow); Glucose,Urine (UA) Normal (Normal); Hyaline Casts,Urine Moderate per lpf (None Seen); Ketones,Urine Negative (Negative); Leukocyte Esterase,Urine Negative (Negative); Mucus,Urine Few per lpf (None-Few); Nitrite,Urine Negative (Negative); PH,Urine 5.5 pH Units (5.0-8.0); Protein,Urine 30 mg/dL (Neg-Trace); RBC,Urine 0-3 per hpf (0-3); Specific Gravity,Urine 1.018 (1.010-1.025); Sperm,Urine Present per hpf (None Seen); Urobilinogen,Urine Normal (Normal); WBC,Urine 0-3 per hpf (0-3)
[2021-02-24] MEDS ORDERED: Azithromycin 500 MG in D5% in Water 250 ML IVPB ONE (19:34)
[2021-02-24] MEDS ORDERED: cefTRIAXone 1,000 MG in 0.9 % Sodium Chloride Mini Bag 100 ML IVPB ONE (19:34)
[2021-02-24] MEDS ORDERED: 0.9 % Sodium Chloride 500 ML ONE (19:41)
[2021-02-24] MEDS ORDERED: Naloxone 0.4 MG/ML INJ IVP PRN (20:27)
[2021-02-24] MEDS ORDERED: Melatonin 3 MG TABLET PO PRN (20:27)
[2021-02-24] MEDS ORDERED: 0.9 % Sodium Chloride 250 ML ONE (22:55)
[2021-02-25 00:46] LABS: Hematocrit 17.3 % (37.5-50.1)
[2021-02-25 00:51] LABS: Hemoglobin 5.1 g/dL (12.9-16.9)
[2021-02-25 01:01] LABS: Alanine Aminotransferase 16 Units/L (7-52); Albumin 2.5 g/dL (3.5-5.7); Albumin/Globulin Ratio 0.8 (1.1-2.2); Alkaline Phosphatase 89 Units/L (34-104); Aspartate Amino Transferase 34 Units/L (13-39); BUN/Creatinine Ratio 27 (6-26); Bilirubin,Total 0.4 mg/dL (0.3-1.0); Blood Urea Nitrogen 33 mg/dL (8-23); Calcium 9.1 mg/dL (8.6-10.3); Carbon Dioxide 24 mEq/L (23-29); Chloride 100 mEq/L (98-107); Glucose 128 mg/dL (70-105); Magnesium 2.1 mg/dL (1.6-2.6); Osmolality,Calculated 283 (280-300); Phosphorous 4.6 mg/dL (2.7-4.5); Potassium 4.3 mEq/L (3.5-5.1); Sodium 132 mEq/L (136-145); Total Protein 5.5 g/dL (6.4-8.9); eGFR For African Americans > 60 (> 60); eGFR For Non-African Americans 57 (> 60)
[2021-02-25 01:06] LABS: INR 1.1; Prothrombin Time 12.4 Seconds (9.4-12.1)
[2021-02-25 01:09] LABS: Activated Partial Thrombo Time 23.9 Seconds (26.0-36.0)
[2021-02-25] MEDS ORDERED: Furosemide 40 MG/4 ML VIAL IVP ONE (01:52)
[2021-02-25] MEDS ORDERED: Ipratropium/Albuterol Neb 3 ML IH PRN (03:02)
[2021-02-25] MEDS: Pantoprazole 40 MG VIAL IVP SCH ×2 (05:34→18:14)
[2021-02-25 05:58] LABS: Acinetobacter baumannii by PCR Not Detected (Not Detect); Candida albicans by PCR Not Detected (Not Detect); Candida glabrata by PCR Not Detected (Not Detect); Candida krusei by PCR Not Detected (Not Detect); Candida parapsilosis by PCR Not Detected (Not Detect); Candida tropicalis by PCR Not Detected (Not Detect); Enterobacter cloacae Cmplx PCR Not Detected (Not Detect); Enterobacteriaceae by PCR Not Detected (Not Detect); Enterococcus by PCR Not Detected (Not Detect); Escherichia coli by PCR Not Detected (Not Detect); Klebsiella oxytoca by PCR Not Detected (Not Detect); Klebsiella pneumoniae by PCR Not Detected (Not Detect); Proteus by PCR Not Detected (Not Detect); Pseudomonas aeruginosa by PCR Not Detected (Not Detect); Serratia marcescens by PCR Not Detected (Not Detect); Staphylococcus aureus by PCR Not Detected (Not Detect); Staphylococcus by PCR Not Detected (Not Detect); Streptococcus agalactiae(B)PCR DETECTED (Not Detect); Streptococcus by PCR Not Detected (Not Detect); Streptococcus pneumoniae PCR Not Detected (Not Detect); Streptococcus pyogenes (A) PCR Not Detected (Not Detect)
[2021-02-25] MEDS ORDERED: Cefepime HCl 2,000 MG in 0.9 % Sodium Chloride Mini Bag 100 ML IVPB SCH (06:00)
[2021-02-25 06:48] LABS: Basophils % 0.1 %; Eosinophils % 0.2 %; Hematocrit 22.5 % (37.5-50.1); Immature Granulocytes % 0.5 % (0-4); Lymphocytes # 0.5 K/mcL (0.6-4.6); Lymphocytes % 4.8 %; Mean Corpuscular HGB Conc 30.2 g/dL (31.6-35.5); Mean Corpuscular Volume 82.7 fL (83.0-100.0); Mean Platelet Volume 8.5 fL (9.4-12.4); Monocytes # 0.9 K/mcL (0.0-1.3); Monocytes % 8.8 %; Neutrophils # 8.6 K/mcL (1.6-8.9); Nucleated Red Blood Cells 1.5 /100 WBC (0); Platelet Count 378 K/mcL (140-400); Red Blood Count 2.72 M/mcL (4.19-5.50); Red Cell Distribution Width 18.3 % (11.5-14.5); Segmented Neutrophils % 85.6 %
[2021-02-25 06:56] LABS: Hemoglobin 6.8 g/dL (12.9-16.9)
[2021-02-25] MEDS ORDERED: 0.9 % Sodium Chloride 250 ML IVC SCH (13:30)
[2021-02-25 18:53] LABS: Hematocrit 26.7 % (37.5-50.1); Hemoglobin 8.3 g/dL (12.9-16.9)
[2021-02-26 01:51] LABS: Basophils % 0.2 %; Eosinophils # 0.2 K/mcL (0.0-0.6); Eosinophils % 1.8 %; Hematocrit 26.8 % (37.5-50.1); Hemoglobin 8.1 g/dL (12.9-16.9); Immature Granulocytes % 0.5 % (0-4); Lymphocytes # 0.6 K/mcL (0.6-4.6); Lymphocytes % 6.9 %; Mean Corpuscular HGB Conc 30.2 g/dL (31.6-35.5); Mean Corpuscular Hemoglobin 25.2 pg (28.0-33.3); Mean Corpuscular Volume 83.5 fL (83.0-100.0); Mean Platelet Volume 8.9 fL (9.4-12.4); Monocytes # 0.8 K/mcL (0.0-1.3); Monocytes % 9.3 %; Neutrophils # 6.9 K/mcL (1.6-8.9); Nucleated Red Blood Cells 0.9 /100 WBC (0); Platelet Count 332 K/mcL (140-400); Red Blood Count 3.21 M/mcL (4.19-5.50); Red Cell Distribution Width 17.8 % (11.5-14.5); Segmented Neutrophils % 81.3 %; White Blood Count 8.5 K/mcL (4.3-11.1)
[2021-02-26 02:09] LABS: BUN/Creatinine Ratio 30 (6-26); Blood Urea Nitrogen 31 mg/dL (8-23); Calcium 8.7 mg/dL (8.6-10.3); Carbon Dioxide 22 mEq/L (23-29); Chloride 104 mEq/L (98-107); Glucose 109 mg/dL (70-105); Osmolality,Calculated 287 (280-300); Potassium 3.7 mEq/L (3.5-5.1); Sodium 135 mEq/L (136-145); eGFR For African Americans > 60 (> 60); eGFR For Non-African Americans > 60 (> 60)
[2021-02-26] MEDS: Pantoprazole 40 MG VIAL IVP SCH ×2 (05:15→17:47)
[2021-02-26] MEDS ORDERED: cefTRIAXone 2,000 MG in 0.9 % Sodium Chloride Mini Bag 100 ML IVP SCH (09:00)
[2021-02-26] MEDS ORDERED: Perflutren Lipid Microsphere 1.3 ML in 0.9 % Sodium Chloride 8.7 ML IVP PRN (09:09)
[2021-02-26] MEDS: amLODIPine 5 MG TABLET PO SCH (10:43)
[2021-02-26] MEDS: cefTRIAXone 2,000 MG in 0.9 % Sodium Chloride Mini Bag 100 ML IVP SCH (10:47)
[2021-02-26 15:11] LABS: RBC,Pleural Fluid < 2000 RBC/mcL
[2021-02-26 15:13] LABS: RBC,Pleural Fluid < 2000 RBC/mcL
[2021-02-26 15:51] LABS: Total Protein,Pleural Fluid 2.5 g/dL
[2021-02-26 15:51] LABS: Total Protein,Pleural Fluid 2.7 g/dL
[2021-02-26 16:16] LABS: Basophils,Pleural Fluid 0 %; Eosinophils,Pleural Fluid 0 %
[2021-02-26 16:17] LABS: Appearance of Pleural Fl Clear (Clear)
[2021-02-26 16:20] LABS: Basophils,Pleural Fluid 0 %; Eosinophils,Pleural Fluid 0 %
[2021-02-26 16:21] LABS: Appearance of Pleural Fl Clear (Clear)
[2021-02-27] MEDS: Pantoprazole 40 MG VIAL IVP SCH ×2 (06:44→18:29)
[2021-02-27] MEDS: amLODIPine 5 MG TABLET PO SCH (08:04)
[2021-02-27] MEDS: cefTRIAXone 2,000 MG in 0.9 % Sodium Chloride Mini Bag 100 ML IVP SCH (08:06)
[2021-02-27] MEDS: Lactobacillus 1 EACH CAP.SPRINK PO SCH (08:17)
[2021-02-27] MEDS: Albumin 25% 25gram/100mL 25 GM/100 ML IV.SOLN IVC SCH ×2 (12:30→14:22)
[2021-02-27] MEDS ORDERED: Furosemide 40 MG/4 ML VIAL IVP ONE (14:00)
[2021-02-27] MEDS ORDERED: Cyanocobalamin (B-12) 1,000 MCG/ML VIAL SQ ONE (17:37)
[2021-02-28] MEDS: Lactobacillus 1 EACH CAP.SPRINK PO SCH ×3 (00:08→20:20)
[2021-02-28 01:26] LABS: Basophils % 0.2 %; Eosinophils # 0.3 K/mcL (0.0-0.6); Hematocrit 20.6 % (37.5-50.1); Immature Granulocytes % 0.6 % (0-4); Lymphocytes # 0.6 K/mcL (0.6-4.6); Lymphocytes % 10.8 %; Mean Corpuscular HGB Conc 30.6 g/dL (31.6-35.5); Mean Corpuscular Hemoglobin 26.3 pg (28.0-33.3); Mean Corpuscular Volume 85.8 fL (83.0-100.0); Mean Platelet Volume 9.2 fL (9.4-12.4); Monocytes # 0.6 K/mcL (0.0-1.3); Neutrophils # 3.8 K/mcL (1.6-8.9); Platelet Count 217 K/mcL (140-400); Red Cell Distribution Width 19.1 % (11.5-14.5); Segmented Neutrophils % 72.4 %; White Blood Count 5.2 K/mcL (4.3-11.1)
[2021-02-28 01:32] LABS: Hemoglobin 6.3 g/dL (12.9-16.9)
[2021-02-28 01:46] LABS: BUN/Creatinine Ratio 22 (6-26); Blood Urea Nitrogen 16 mg/dL (8-23); Calcium 7.5 mg/dL (8.6-10.3); Carbon Dioxide 24 mEq/L (23-29); Chloride 103 mEq/L (98-107); Glucose 94 mg/dL (70-105); Osmolality,Calculated 275 (280-300); Potassium 3.6 mEq/L (3.5-5.1); Sodium 132 mEq/L (136-145); eGFR For African Americans > 60 (> 60); eGFR For Non-African Americans > 60 (> 60)
[2021-02-28] MEDS: Pantoprazole 40 MG VIAL IVP SCH ×2 (05:35→17:22)
[2021-02-28] MEDS: cefTRIAXone 2,000 MG in 0.9 % Sodium Chloride Mini Bag 100 ML IVP SCH (07:43)
[2021-02-28] MEDS: amLODIPine 5 MG TABLET PO SCH (07:48)
[2021-02-28] MEDS ORDERED: 0.9 % Sodium Chloride 250 ML ONE (08:43)
[2021-02-28 14:26] LABS: BUN/Creatinine Ratio 21 (6-26); Blood Urea Nitrogen 13 mg/dL (8-23); Calcium 7.9 mg/dL (8.6-10.3); Carbon Dioxide 26 mEq/L (23-29); Chloride 101 mEq/L (98-107); Glucose 91 mg/dL (70-105); Iron 23 mcg/dL (65-175); Osmolality,Calculated 274 (280-300); Potassium 3.4 mEq/L (3.5-5.1); Sodium 132 mEq/L (136-145); eGFR For African Americans > 60 (> 60); eGFR For Non-African Americans > 60 (> 60)
[2021-02-28 14:56] LABS: Folate 7.5 ng/mL (3.0-16.0)
[2021-02-28 14:58] LABS: Vitamin B12 > 1500 pg/mL (250-1100)
[2021-03-01 03:33] LABS: Basophils % 0.5 %; Eosinophils # 0.2 K/mcL (0.0-0.6); Eosinophils % 2.7 %; Hematocrit 25.5 % (37.5-50.1); Lymphocytes # 0.6 K/mcL (0.6-4.6); Lymphocytes % 10.8 %; Mean Corpuscular Hemoglobin 26.1 pg (28.0-33.3); Mean Corpuscular Volume 84.2 fL (83.0-100.0); Monocytes # 0.8 K/mcL (0.0-1.3); Monocytes % 13.3 %; Neutrophils # 4.2 K/mcL (1.6-8.9); Platelet Count 220 K/mcL (140-400); Red Blood Count 3.03 M/mcL (4.19-5.50); Red Cell Distribution Width 19.9 % (11.5-14.5); Segmented Neutrophils % 71.7 %; White Blood Count 5.9 K/mcL (4.3-11.1)
[2021-03-01 03:34] LABS: Hemoglobin 7.9 g/dL (12.9-16.9)
[2021-03-01] MEDS: Pantoprazole 40 MG VIAL IVP SCH ×2 (05:17→17:02)
[2021-03-01] MEDS: cefTRIAXone 2,000 MG in 0.9 % Sodium Chloride Mini Bag 100 ML IVP SCH (09:13)
[2021-03-01] MEDS: amLODIPine 5 MG TABLET PO SCH (09:14)
[2021-03-01] MEDS: Lactobacillus 1 EACH CAP.SPRINK PO SCH ×2 (09:14→20:59)
[2021-03-01 10:44] LABS: % Iron Saturation 11 % (20-55); Transferrin 150 mg/dL (203-362)
[2021-03-01] MEDS ORDERED: Furosemide 40 MG/4 ML VIAL IVP ONE (13:30)
[2021-03-02] MEDS: Pantoprazole 40 MG VIAL IVP SCH ×2 (06:32→17:22)
[2021-03-02 06:34] LABS: Basophils % 0.4 %; Eosinophils # 0.2 K/mcL (0.0-0.6); Eosinophils % 4.3 %; Hemoglobin 8.5 g/dL (12.9-16.9); Immature Granulocytes % 1.1 % (0-4); Lymphocytes # 0.6 K/mcL (0.6-4.6); Lymphocytes % 11.4 %; Mean Corpuscular HGB Conc 29.3 g/dL (31.6-35.5); Mean Corpuscular Hemoglobin 24.9 pg (28.0-33.3); Mean Platelet Volume 9.8 fL (9.4-12.4); Monocytes % 17.7 %; Neutrophils # 3.6 K/mcL (1.6-8.9); Platelet Count 228 K/mcL (140-400); Red Blood Count 3.41 M/mcL (4.19-5.50); Red Cell Distribution Width 19.9 % (11.5-14.5); Segmented Neutrophils % 65.1 %; White Blood Count 5.5 K/mcL (4.3-11.1)
[2021-03-02] MEDS: cefTRIAXone 2,000 MG in 0.9 % Sodium Chloride Mini Bag 100 ML IVP SCH (10:03)
[2021-03-02] MEDS: Lactobacillus 1 EACH CAP.SPRINK PO SCH ×2 (10:03→21:08)
[2021-03-02] MEDS: amLODIPine 5 MG TABLET PO SCH (10:03)
[2021-03-02] MEDS: Furosemide 40 MG TABLET PO SCH (10:03)
[2021-03-02] MEDS ORDERED: Lidocaine -MPF 1% 5 ML AMPUL ID PRN (12:36)
[2021-03-03 02:29] LABS: Fluid Source for Albumin R PLEURAL FL
[2021-03-03 02:29] LABS: Fluid Source for Albumin L PLEURAL FL
[2021-03-03 05:36] LABS: Basophils % 0.6 %; Eosinophils # 0.3 K/mcL (0.0-0.6); Immature Granulocytes % 0.9 % (0-4); Lymphocytes # 0.7 K/mcL (0.6-4.6); Lymphocytes % 12.5 %; Mean Corpuscular HGB Conc 29.6 g/dL (31.6-35.5); Mean Corpuscular Hemoglobin 25.3 pg (28.0-33.3); Mean Corpuscular Volume 85.4 fL (83.0-100.0); Mean Platelet Volume 9.8 fL (9.4-12.4); Monocytes % 17.9 %; Neutrophils # 3.4 K/mcL (1.6-8.9); Platelet Count 258 K/mcL (140-400); Red Blood Count 3.16 M/mcL (4.19-5.50); Red Cell Distribution Width 19.9 % (11.5-14.5); Segmented Neutrophils % 63.1 %; White Blood Count 5.4 K/mcL (4.3-11.1)
[2021-03-03] MEDS: Pantoprazole 40 MG VIAL IVP SCH ×2 (05:51→17:56)
[2021-03-03] MEDS: Furosemide 40 MG TABLET PO SCH (09:18)
[2021-03-03] MEDS: cefTRIAXone 2,000 MG in 0.9 % Sodium Chloride Mini Bag 100 ML IVP SCH (09:19)
[2021-03-03] MEDS: Lactobacillus 1 EACH CAP.SPRINK PO SCH ×2 (09:19→21:53)
[2021-03-03] MEDS: amLODIPine 5 MG TABLET PO SCH (09:19)
[2021-03-03] MEDS: Iron Sucrose Complex 250 MG in 0.9 % Sodium Chloride 250 ML IVPB SCH (14:45)
[2021-03-03] MEDS ORDERED: Acetaminophen 325 MG TABLET PO PRN (22:01)
[2021-03-04 04:28] LABS: Basophils % 0.4 %; Eosinophils # 0.3 K/mcL (0.0-0.6); Eosinophils % 5.5 %; Hematocrit 26.6 % (37.5-50.1); Hemoglobin 7.9 g/dL (12.9-16.9); Immature Granulocytes % 1.3 % (0-4); Lymphocytes # 0.5 K/mcL (0.6-4.6); Lymphocytes % 11.9 %; Mean Corpuscular HGB Conc 29.7 g/dL (31.6-35.5); Mean Corpuscular Hemoglobin 25.2 pg (28.0-33.3); Mean Platelet Volume 10.1 fL (9.4-12.4); Monocytes # 0.7 K/mcL (0.0-1.3); Platelet Count 268 K/mcL (140-400); Red Blood Count 3.13 M/mcL (4.19-5.50); Red Cell Distribution Width 19.9 % (11.5-14.5); Segmented Neutrophils % 65.9 %; White Blood Count 4.5 K/mcL (4.3-11.1)
[2021-03-04 04:46] LABS: BUN/Creatinine Ratio 26 (6-26); Blood Urea Nitrogen 11 mg/dL (8-23); Calcium 7.5 mg/dL (8.6-10.3); Carbon Dioxide 28 mEq/L (23-29); Chloride 104 mEq/L (98-107); Glucose 88 mg/dL (70-105); Magnesium 1.7 mg/dL (1.6-2.6); Osmolality,Calculated 281 (280-300); Phosphorous 1.7 mg/dL (2.7-4.5); Potassium 3.2 mEq/L (3.5-5.1); Sodium 136 mEq/L (136-145); eGFR For African Americans > 60 (> 60); eGFR For Non-African Americans > 60 (> 60)
[2021-03-04] MEDS: Pantoprazole 40 MG VIAL IVP SCH ×2 (05:55→17:34)
[2021-03-04] MEDS: amLODIPine 5 MG TABLET PO SCH (08:44)
[2021-03-04] MEDS: Furosemide 40 MG TABLET PO SCH (08:44)
[2021-03-04] MEDS: Lactobacillus 1 EACH CAP.SPRINK PO SCH ×2 (08:44→20:30)
[2021-03-04] MEDS: Iron Sucrose Complex 250 MG in 0.9 % Sodium Chloride 250 ML IVPB SCH (08:45)
[2021-03-04] MEDS: cefTRIAXone 2,000 MG in 0.9 % Sodium Chloride Mini Bag 100 ML IVP SCH (08:45)
[2021-03-05 05:21] LABS: Basophils % 0.7 %; Eosinophils # 0.2 K/mcL (0.0-0.6); Eosinophils % 5.1 %; Hematocrit 25.9 % (37.5-50.1); Hemoglobin 7.7 g/dL (12.9-16.9); Immature Granulocytes % 1.3 % (0-4); Lymphocytes # 0.6 K/mcL (0.6-4.6); Lymphocytes % 13.4 %; Mean Corpuscular HGB Conc 29.7 g/dL (31.6-35.5); Mean Corpuscular Hemoglobin 25.6 pg (28.0-33.3); Monocytes # 0.7 K/mcL (0.0-1.3); Monocytes % 16.3 %; Neutrophils # 2.9 K/mcL (1.6-8.9); Platelet Count 312 K/mcL (140-400); Red Blood Count 3.01 M/mcL (4.19-5.50); Red Cell Distribution Width 20.3 % (11.5-14.5); Segmented Neutrophils % 63.2 %; White Blood Count 4.5 K/mcL (4.3-11.1)
[2021-03-05 05:32] LABS: BUN/Creatinine Ratio 19 (6-26); Blood Urea Nitrogen 9 mg/dL (8-23); Calcium 7.6 mg/dL (8.6-10.3); Carbon Dioxide 29 mEq/L (23-29); Chloride 104 mEq/L (98-107); Glucose 84 mg/dL (70-105); Magnesium 1.7 mg/dL (1.6-2.6); Osmolality,Calculated 284 (280-300); Potassium 3.1 mEq/L (3.5-5.1); Sodium 138 mEq/L (136-145); eGFR For African Americans > 60 (> 60); eGFR For Non-African Americans > 60 (> 60)
[2021-03-05] MEDS: Pantoprazole 40 MG VIAL IVP SCH (06:05)
[2021-03-05] MEDS: Furosemide 40 MG TABLET PO SCH (08:07)
[2021-03-05] MEDS: Lactobacillus 1 EACH CAP.SPRINK PO SCH ×2 (08:07→21:44)
[2021-03-05] MEDS: amLODIPine 5 MG TABLET PO SCH (08:07)
[2021-03-05] MEDS: cefTRIAXone 2,000 MG in 0.9 % Sodium Chloride Mini Bag 100 ML IVP SCH (08:08)
[2021-03-06 07:16] LABS: Basophils % 0.6 %; Eosinophils # 0.2 K/mcL (0.0-0.6); Eosinophils % 3.8 %; Hematocrit 27.4 % (37.5-50.1); Immature Granulocytes % 0.9 % (0-4); Lymphocytes # 0.7 K/mcL (0.6-4.6); Lymphocytes % 15.8 %; Mean Corpuscular HGB Conc 29.2 g/dL (31.6-35.5); Mean Corpuscular Hemoglobin 25.3 pg (28.0-33.3); Mean Corpuscular Volume 86.7 fL (83.0-100.0); Mean Platelet Volume 9.4 fL (9.4-12.4); Monocytes # 0.7 K/mcL (0.0-1.3); Monocytes % 15.2 %; Platelet Count 339 K/mcL (140-400); Red Blood Count 3.16 M/mcL (4.19-5.50); Red Cell Distribution Width 20.9 % (11.5-14.5); Segmented Neutrophils % 63.7 %; White Blood Count 4.7 K/mcL (4.3-11.1)
[2021-03-06 07:34] LABS: BUN/Creatinine Ratio 19 (6-26); Blood Urea Nitrogen 9 mg/dL (8-23); Carbon Dioxide 31 mEq/L (23-29); Chloride 104 mEq/L (98-107); Glucose 87 mg/dL (70-105); Magnesium 1.7 mg/dL (1.6-2.6); Osmolality,Calculated 284 (280-300); Potassium 3.6 mEq/L (3.5-5.1); Sodium 138 mEq/L (136-145); eGFR For African Americans > 60 (> 60); eGFR For Non-African Americans > 60 (> 60)
[2021-03-06] MEDS: cefTRIAXone 2,000 MG in 0.9 % Sodium Chloride Mini Bag 100 ML IVP SCH (08:52)
[2021-03-06] MEDS: Lactobacillus 1 EACH CAP.SPRINK PO SCH ×2 (08:52→21:43)
[2021-03-06] MEDS: amLODIPine 5 MG TABLET PO SCH (08:52)
[2021-03-07 07:07] LABS: Basophils % 0.8 %
[2021-03-07 07:08] LABS: Eosinophils # 0.2 K/mcL (0.0-0.6); Eosinophils % 4.5 %; Hematocrit 27.3 % (37.5-50.1); Lymphocytes # 0.8 K/mcL (0.6-4.6); Lymphocytes % 15.9 %; Mean Corpuscular HGB Conc 29.3 g/dL (31.6-35.5); Mean Corpuscular Hemoglobin 25.8 pg (28.0-33.3); Mean Corpuscular Volume 88.1 fL (83.0-100.0); Mean Platelet Volume 9.6 fL (9.4-12.4); Monocytes # 0.7 K/mcL (0.0-1.3); Monocytes % 14.4 %; Neutrophils # 3.1 K/mcL (1.6-8.9); Platelet Count 399 K/mcL (140-400); Red Cell Distribution Width 21.6 % (11.5-14.5); Segmented Neutrophils % 63.4 %; White Blood Count 4.9 K/mcL (4.3-11.1)
[2021-03-07 07:26] LABS: BUN/Creatinine Ratio 20 (6-26); Blood Urea Nitrogen 10 mg/dL (8-23); Carbon Dioxide 31 mEq/L (23-29); Chloride 105 mEq/L (98-107); Glucose 85 mg/dL (70-105); Magnesium 1.7 mg/dL (1.6-2.6); Osmolality,Calculated 282 (280-300); Potassium 3.3 mEq/L (3.5-5.1); Sodium 137 mEq/L (136-145); eGFR For African Americans > 60 (> 60); eGFR For Non-African Americans > 60 (> 60)
[2021-03-07 08:06] LABS: Anisocytosis 2+ (Not Present); Hypochromasia Present (Not Present); Platelet Estimate Normal (Normal); Polychromasia 1+ (Not Present)
[2021-03-07] MEDS: Lactobacillus 1 EACH CAP.SPRINK PO SCH ×2 (09:58→21:09)
[2021-03-07] MEDS: amLODIPine 5 MG TABLET PO SCH (09:58)
[2021-03-07] MEDS: cefTRIAXone 2,000 MG in 0.9 % Sodium Chloride Mini Bag 100 ML IVP SCH (14:28)
[2021-03-08 00:31] LABS: Basophils % 0.8 %; Eosinophils # 0.2 K/mcL (0.0-0.6); Eosinophils % 3.7 %; Hematocrit 28.2 % (37.5-50.1); Hemoglobin 8.4 g/dL (12.9-16.9); Lymphocytes # 0.8 K/mcL (0.6-4.6); Mean Corpuscular HGB Conc 29.8 g/dL (31.6-35.5); Mean Corpuscular Hemoglobin 26.5 pg (28.0-33.3); Monocytes # 0.8 K/mcL (0.0-1.3); Monocytes % 14.7 %; Neutrophils # 3.3 K/mcL (1.6-8.9); Platelet Count 399 K/mcL (140-400); Red Blood Count 3.17 M/mcL (4.19-5.50); Red Cell Distribution Width 21.7 % (11.5-14.5); Segmented Neutrophils % 63.8 %; White Blood Count 5.2 K/mcL (4.3-11.1)
[2021-03-08 00:49] LABS: BUN/Creatinine Ratio 19 (6-26); Blood Urea Nitrogen 10 mg/dL (8-23); Carbon Dioxide 29 mEq/L (23-29); Chloride 105 mEq/L (98-107); Glucose 92 mg/dL (70-105); Magnesium 1.7 mg/dL (1.6-2.6); Osmolality,Calculated 287 (280-300); Potassium 3.8 mEq/L (3.5-5.1); Sodium 139 mEq/L (136-145); eGFR For African Americans > 60 (> 60); eGFR For Non-African Americans > 60 (> 60)
[2021-03-08] MEDS: Lactobacillus 1 EACH CAP.SPRINK PO SCH (09:59)
[2021-03-08] MEDS: amLODIPine 5 MG TABLET PO SCH (09:59)
[2021-03-08] MEDS: cefTRIAXone 2,000 MG in 0.9 % Sodium Chloride Mini Bag 100 ML IVP SCH (10:00)
[2021-03-08 15:37] VITALS: BP 134/78; PULSE 72; TEMP 97.9; O2SAT 98
== END 2021-03-08 19:01 | disposition home health service (06) | DRG 871 ==
LOC: EMEROOARM 16:51 → 3NENU 16:51 → SUATTDRO 19:38 → 3NENU 21:09
PROVIDERS: ADMIT Internal Medicine; ATTEND Pharmacist

== ENCOUNTER 2021-03-09 21:12 | Inpatient (IN) ==
[2021-03-09 21:54] LABS: Basophils # 0.1 K/mcL (0.0-0.2); Basophils % 1.4 %; Eosinophils # 0.1 K/mcL (0.0-0.6); Eosinophils % 1.3 %; Hemoglobin 10.5 g/dL (12.9-16.9); Immature Granulocytes % 0.6 % (0-4); Lymphocytes # 3.1 K/mcL (0.6-4.6); Lymphocytes % 30.1 %; Mean Corpuscular HGB Conc 29.2 g/dL (31.6-35.5); Mean Corpuscular Volume 89.1 fL (83.0-100.0); Mean Platelet Volume 8.9 fL (9.4-12.4); Monocytes # 1.2 K/mcL (0.0-1.3); Neutrophils # 5.6 K/mcL (1.6-8.9); Platelet Count 539 K/mcL (140-400); Red Blood Count 4.04 M/mcL (4.19-5.50); Red Cell Distribution Width 22.2 % (11.5-14.5); Segmented Neutrophils % 54.6 %; White Blood Count 10.3 K/mcL (4.3-11.1)
[2021-03-09 21:56] LABS: INR 1.1; Prothrombin Time 11.7 Seconds (9.4-12.1)
[2021-03-09 21:58] LABS: Activated Partial Thrombo Time 29.1 Seconds (26.0-36.0)
[2021-03-09 22:12] LABS: Alanine Aminotransferase 7 Units/L (7-52); Albumin 2.6 g/dL (3.5-5.7); Albumin/Globulin Ratio 0.8 (1.1-2.2); Alkaline Phosphatase 67 Units/L (34-104); Aspartate Amino Transferase 16 Units/L (13-39); BUN/Creatinine Ratio 23 (6-26); Bilirubin,Indirect 0.2 mg/dL (0.0-1.0); Bilirubin,Total 0.2 mg/dL (0.3-1.0); Blood Urea Nitrogen 12 mg/dL (8-23); Calcium 8.9 mg/dL (8.6-10.3); Carbon Dioxide 27 mEq/L (23-29); Chloride 106 mEq/L (98-107); Globulin 3.3 g/dL (2.4-3.5); Glucose 113 mg/dL (70-105); Osmolality,Calculated 287 (280-300); Potassium 3.8 mEq/L (3.5-5.1); Sodium 138 mEq/L (136-145); Total Protein 5.9 g/dL (6.4-8.9); eGFR For African Americans > 60 (> 60); eGFR For Non-African Americans > 60 (> 60)
[2021-03-09 22:15] LABS: Troponin I 0.06 ng/mL (< 0.04)
[2021-03-09 22:26] LABS: Influenza A PCR Negative (Negative); Influenza B PCR Negative (Negative); Resp. Syncytial Virus PCR Negative (Negative)
[2021-03-09 22:29] LABS: SARS-CoV-2 by PCR (In House) Negative (Negative)
[2021-03-10] MEDS ORDERED: Acetaminophen 325 MG TABLET PO PRN (00:03)
[2021-03-10] MEDS ORDERED: Melatonin 3 MG TABLET PO PRN (00:03)
[2021-03-10] MEDS ORDERED: Naloxone 0.4 MG/ML INJ IVP PRN (00:03)
[2021-03-10] MEDS ORDERED: Ondansetron 4 MG/2 ML VIAL IVP PRN (00:03)
[2021-03-10 06:20] LABS: Basophils # 0.1 K/mcL (0.0-0.2); Basophils % 1.3 %; Eosinophils # 0.1 K/mcL (0.0-0.6); Eosinophils % 0.8 %; Hematocrit 33.5 % (37.5-50.1); Hemoglobin 9.8 g/dL (12.9-16.9); Immature Granulocytes % 0.8 % (0-4); Lymphocytes # 1.8 K/mcL (0.6-4.6); Lymphocytes % 25.5 %; Mean Corpuscular HGB Conc 29.3 g/dL (31.6-35.5); Mean Corpuscular Hemoglobin 26.4 pg (28.0-33.3); Mean Corpuscular Volume 90.3 fL (83.0-100.0); Mean Platelet Volume 8.5 fL (9.4-12.4); Monocytes # 0.8 K/mcL (0.0-1.3); Monocytes % 11.5 %; Neutrophils # 4.2 K/mcL (1.6-8.9); Platelet Count 549 K/mcL (140-400); Red Blood Count 3.71 M/mcL (4.19-5.50); Red Cell Distribution Width 22.2 % (11.5-14.5); Segmented Neutrophils % 60.1 %; White Blood Count 7.1 K/mcL (4.3-11.1)
[2021-03-10] MEDS ORDERED: Furosemide 20 MG/2 ML VIAL IVP ONE (06:45)
[2021-03-10 06:52] LABS: Alanine Aminotransferase 8 Units/L (7-52); Albumin 2.5 g/dL (3.5-5.7); Albumin/Globulin Ratio 0.8 (1.1-2.2); Alkaline Phosphatase 67 Units/L (34-104); Aspartate Amino Transferase 17 Units/L (13-39); BUN/Creatinine Ratio 22 (6-26); Bilirubin,Total 0.2 mg/dL (0.3-1.0); Blood Urea Nitrogen 12 mg/dL (8-23); Calcium 9.1 mg/dL (8.6-10.3); Carbon Dioxide 30 mEq/L (23-29); Chloride 105 mEq/L (98-107); Globulin 3.1 g/dL (2.4-3.5); Glucose 83 mg/dL (70-105); Magnesium 1.9 mg/dL (1.6-2.6); Osmolality,Calculated 285 (280-300); Potassium 3.8 mEq/L (3.5-5.1); Sodium 138 mEq/L (136-145); Total Protein 5.6 g/dL (6.4-8.9); Troponin I 0.31 ng/mL (< 0.04); eGFR For African Americans > 60 (> 60); eGFR For Non-African Americans > 60 (> 60)
[2021-03-10] MEDS ORDERED: 0.9 % Sodium Chloride 500 ML ONE (07:53)
[2021-03-10] MEDS: Azithromycin 500 MG in D5% in Water 250 ML IVPB SCH (07:59)
[2021-03-10] MEDS: cefTRIAXone 2,000 MG in 0.9 % Sodium Chloride Mini Bag 100 ML IVPB SCH (07:59)
[2021-03-10] MEDS ORDERED: Aspirin Enteric Coated 325 MG Tablet PO ONE (08:58)
[2021-03-10] MEDS ORDERED: cefTRIAXone 1,000 MG in Water for inj. (sterile) 10 ML IVP SCH (09:00)
[2021-03-10] MEDS ORDERED: Perflutren Lipid Microsphere 1.3 ML in 0.9 % Sodium Chloride 8.7 ML IVP PRN (11:06)
[2021-03-10] MEDS: *HR* Heparin 5,000 UNIT/ML VIAL SQ SCH (19:21)
[2021-03-11 00:52] LABS: Eosinophils % 4.8 %
[2021-03-11 00:53] LABS: Basophils # 0.1 K/mcL (0.0-0.2); Basophils % 1.8 %; Eosinophils # 0.2 K/mcL (0.0-0.6); Hematocrit 28.9 % (37.5-50.1); Hemoglobin 8.4 g/dL (12.9-16.9); Lymphocytes # 0.9 K/mcL (0.6-4.6); Lymphocytes % 22.5 %; Mean Corpuscular HGB Conc 29.1 g/dL (31.6-35.5); Mean Corpuscular Hemoglobin 26.3 pg (28.0-33.3); Mean Corpuscular Volume 90.3 fL (83.0-100.0); Mean Platelet Volume 8.7 fL (9.4-12.4); Monocytes # 0.7 K/mcL (0.0-1.3); Neutrophils # 2.1 K/mcL (1.6-8.9); Platelet Count 494 K/mcL (140-400); Red Cell Distribution Width 21.8 % (11.5-14.5); Segmented Neutrophils % 52.9 %
[2021-03-11 01:06] LABS: BUN/Creatinine Ratio 24 (6-26); Blood Urea Nitrogen 14 mg/dL (8-23); Calcium 8.5 mg/dL (8.6-10.3); Carbon Dioxide 32 mEq/L (23-29); Chloride 105 mEq/L (98-107); Glucose 99 mg/dL (70-105); Magnesium 1.8 mg/dL (1.6-2.6); Osmolality,Calculated 291 (280-300); Potassium 3.6 mEq/L (3.5-5.1); Sodium 140 mEq/L (136-145); eGFR For African Americans > 60 (> 60); eGFR For Non-African Americans > 60 (> 60)
[2021-03-11 01:27] LABS: Hypochromasia Present (Not Present); Large Platelets Present (Not Present); Platelet Estimate Normal (Normal)
[2021-03-11] MEDS: *HR* Heparin 5,000 UNIT/ML VIAL SQ SCH (05:09)
[2021-03-11] MEDS: Azithromycin 500 MG in D5% in Water 250 ML IVPB SCH (06:35)
[2021-03-11] MEDS: Aspirin Enteric Coated 81 MG Tablet PO SCH (08:27)
[2021-03-11] MEDS: cefTRIAXone 2,000 MG in 0.9 % Sodium Chloride Mini Bag 100 ML IVPB SCH (08:28)
[2021-03-11] MEDS: Furosemide 40 MG/4 ML VIAL IVP SCH (13:43)
[2021-03-11] MEDS: Ipratropium/Albuterol Neb 3 ML IH SCH ×4 (13:57→23:28)
[2021-03-11] MEDS: Lactobacillus 1 EACH CAP.SPRINK PO SCH (20:04)
[2021-03-12 02:06] LABS: Immature Granulocytes % 0.5 % (0-4)
[2021-03-12 02:08] LABS: Basophils # 0.1 K/mcL (0.0-0.2); Basophils % 1.4 %; Eosinophils # 0.2 K/mcL (0.0-0.6); Eosinophils % 4.5 %; Hemoglobin 8.3 g/dL (12.9-16.9); Lymphocytes # 0.9 K/mcL (0.6-4.6); Lymphocytes % 22.2 %; Mean Corpuscular HGB Conc 29.6 g/dL (31.6-35.5); Mean Corpuscular Hemoglobin 26.6 pg (28.0-33.3); Mean Corpuscular Volume 89.7 fL (83.0-100.0); Mean Platelet Volume 8.9 fL (9.4-12.4); Monocytes # 0.6 K/mcL (0.0-1.3); Neutrophils # 2.4 K/mcL (1.6-8.9); Platelet Count 466 K/mcL (140-400); Red Blood Count 3.12 M/mcL (4.19-5.50); Segmented Neutrophils % 56.4 %; White Blood Count 4.2 K/mcL (4.3-11.1)
[2021-03-12 02:27] LABS: BUN/Creatinine Ratio 29 (6-26); Blood Urea Nitrogen 15 mg/dL (8-23); Calcium 8.4 mg/dL (8.6-10.3); Carbon Dioxide 30 mEq/L (23-29); Chloride 105 mEq/L (98-107); Glucose 89 mg/dL (70-105); Magnesium 1.9 mg/dL (1.6-2.6); Osmolality,Calculated 286 (280-300); Potassium 3.6 mEq/L (3.5-5.1); Sodium 138 mEq/L (136-145); eGFR For African Americans > 60 (> 60); eGFR For Non-African Americans > 60 (> 60)
[2021-03-12 03:01] LABS: Acanthocytes 2+ (Not Present); Hypochromasia Present (Not Present)
[2021-03-12] MEDS: Ipratropium/Albuterol Neb 3 ML IH SCH ×5 (04:08→20:54)
[2021-03-12] MEDS: Furosemide 40 MG/4 ML VIAL IVP SCH (08:25)
[2021-03-12] MEDS: Azithromycin 500 MG in D5% in Water 250 ML IVPB SCH (09:17)
[2021-03-12] MEDS: Metoprolol XL (24 HR) Succ 25 MG TAB.ER.24H PO SCH (10:28)
[2021-03-12] MEDS: Aspirin Enteric Coated 81 MG Tablet PO SCH (10:28)
[2021-03-12] MEDS: DASATINIB 100 MG PO SCH (10:28)
[2021-03-12] MEDS: Lactobacillus 1 EACH CAP.SPRINK PO SCH ×2 (10:28→20:02)
[2021-03-12] MEDS: cefTRIAXone 2,000 MG in 0.9 % Sodium Chloride Mini Bag 100 ML IVPB SCH (11:22)
[2021-03-13] MEDS: Ipratropium/Albuterol Neb 3 ML IH SCH ×4 (00:06→10:54)
[2021-03-13] MEDS: Furosemide 40 MG/4 ML VIAL IVP SCH (08:06)
[2021-03-13] MEDS: Azithromycin 500 MG in D5% in Water 250 ML IVPB SCH (08:06)
[2021-03-13] MEDS: Aspirin Enteric Coated 81 MG Tablet PO SCH (08:07)
[2021-03-13] MEDS: Lactobacillus 1 EACH CAP.SPRINK PO SCH (08:07)
[2021-03-13] MEDS: Metoprolol XL (24 HR) Succ 25 MG TAB.ER.24H PO SCH (08:07)
[2021-03-13] MEDS: DASATINIB 100 MG PO SCH (08:07)
[2021-03-13 14:41] VITALS: BP 119/73; PULSE 71; TEMP 97.7; O2SAT 96
== END 2021-03-13 16:05 | disposition home health service (06) | DRG 280 ==
LOC: EMEROOARM 21:12 → 3ANU 21:12 → SUATTDRO 23:00 → 3ANU 23:35
PROVIDERS: ADMIT Internal Medicine; ATTEND Internal Medicine